=== PATIENT | male | born 1990 | race Caucasian/White ===

== ENCOUNTER 2018-08-15 19:55 | Emergency (ER) | payer MEDICAID | END 2018-08-15 21:27 | disposition home or self-care (01) | LOC: ED 19:55 ==

== ENCOUNTER 2019-10-30 11:11 | Emergency (ER) | payer OTHER ==
[~2019-10-30] VITALS: Ht 175.3 cm; Wt 101.6 kg
[2019-10-30 11:22] VITALS: Ht 175.3 cm; Wt 101.6 kg
[2019-10-30 12:57] VITALS: BP 138/81
== END 2019-10-30 12:57 | disposition home or self-care (01) ==
LOC: ED 11:11
DX: S40.012A Contusion of left shoulder, initial encounter (principal); M62.830 Muscle spasm of back; M54.6 Pain in thoracic spine; M54.2 Cervicalgia; V49.49XA Driver injured in collision with other motor vehicles in traffic accident, initial encounter; Y93.I9 Activity, other involving external motion; Y92.488 Other paved roadways as the place of occurrence of the external cause; Y99.8 Other external cause status

== ENCOUNTER 2019-12-24 10:11 | Emergency (ER) | payer SELFPAY ==
[~2019-12-24] VITALS: Ht 175.3 cm; Wt 90.7 kg
[2019-12-24 10:12] VITALS: BP 135/81; Ht 175.3 cm; Wt 90.7 kg
== END 2019-12-24 11:22 | disposition home or self-care (01) ==
LOC: ED 10:11
DX: R09.89 Other specified symptoms and signs involving the circulatory and respiratory systems (principal); M79.10 Myalgia, unspecified site; R68.83 Chills (without fever); Z20.828 Contact with and (suspected) exposure to other viral communicable diseases
CPT/HCPCS: U0003-CS

== ENCOUNTER 2019-12-27 10:31 | Emergency (ER) | payer OTHER | END 2019-12-27 11:15 | disposition other institution (70) | LOC: ED 10:31 | DX: Z02.89 Encounter for other administrative examinations (principal) ==

== ENCOUNTER 2019-12-27 10:31 | Emergency (ER) | payer SELFPAY ==
[~2019-12-27] VITALS: Ht 175.3 cm; Wt 95.3 kg
[2019-12-27 10:33] VITALS: BP 167/92; Ht 175.3 cm; Wt 95.3 kg
== END 2019-12-27 11:15 | disposition other institution (70) ==
LOC: ED 10:31
DX: J02.9 Acute pharyngitis, unspecified (principal); J45.909 Unspecified asthma, uncomplicated; Z20.828 Contact with and (suspected) exposure to other viral communicable diseases; Z98.890 Other specified postprocedural states
CPT/HCPCS: U0003-CS

== ENCOUNTER 2020-05-31 10:51 | Emergency (ER) | payer SELFPAY ==
[~2020-05-31] VITALS: Ht 175.3 cm; Wt 100.7 kg
[2020-05-31 11:04] VITALS: BP 122/74; Ht 175.3 cm; Wt 100.7 kg
== END 2020-05-31 13:27 | disposition left against medical advice (07) ==
LOC: ED 10:51
DX: R07.89 Other chest pain (principal); R06.02 Shortness of breath; F12.10 Cannabis abuse, uncomplicated; J45.909 Unspecified asthma, uncomplicated; Z98.890 Other specified postprocedural states